=== PATIENT | female | born 1930 | race Caucasian/White ===

== ENCOUNTER → 2016-04-26 | Outpatient (CLI) | payer OTHER, MEDICARE | LOC: CIMAGING 09:53 | PROVIDERS: ATTEND Family Medicine | DX: M17.11 Unilateral primary osteoarthritis, right knee (principal); M25.552 Pain in left hip | CPT/HCPCS: 73502-PO; 73562-PO ==

== ENCOUNTER → 2016-05-10 | Outpatient (CLI) | payer OTHER, MEDICARE | LOC: FIMAGING 09:13 | PROVIDERS: ATTEND Family Medicine | DX: Z13.820 Encounter for screening for osteoporosis (principal); M85.80 Other specified disorders of bone density and structure, unspecified site; Z78.0 Asymptomatic menopausal state ==

== ENCOUNTER 2018-01-29 14:33 | Day surgery (SDC) | payer OTHER, MEDICARE ==
[2018-01-29] MEDS ORDERED: ALTEPLASE 2 MG VIAL IVP PRN (15:41)
[2018-01-29] MEDS ORDERED: PROTAMINE SULFATE 50 MG/5 ML VIAL IVP PRN (15:41)
[2018-01-29] MEDS ORDERED: fentaNYL 100 MCG/2 ML INJ IVP PRN (15:41)
[2018-01-29] MEDS ORDERED: MIDAZOLAM 2 MG/2 ML VIAL IVP PRN (15:41)
[2018-01-29] MEDS ORDERED: NALOXONE HCL 0.4 MG/ML INJ IVP PRN (15:41)
[2018-01-29] MEDS ORDERED: MEPERIDINE 25 MG/ML SYR IVP PRN (15:41)
[2018-01-29] MEDS ORDERED: HEPARIN 10,000 UNIT/10 ML MDV (1,000 UNIT/ML) IVP PRN (15:41)
[2018-01-29] MEDS ORDERED: FLUMAZENIL 0.5 MG/5 ML MDV IVP PRN (15:41)
[2018-01-29] MEDS ORDERED: GLUCAGON HCL 1 MG VIAL IVP PRN (15:41)
[2018-01-29] MEDS ORDERED: NS 1,000 ML IV SCH (15:45)
--- NOTE | 2018-01-29 16:39 | PDHPUP ---
History & Physical Update H&P update statement: This history and physical update is based on an assessment of the patient which was completed after admission or registration (within 24 hours), but prior to the surgery/procedure. H&P update: H&P reviewed & patient examined, no change in patient's condition since H&P completed
--- NOTE | 2018-01-29 16:40 | PDPROPOC ---
Sedation Plan of Care Sedation Plan of Care: vital signs stable, mental status noted, patient educated of risks, benefits, alternatives ASA Classification: ASA 2 Planned drugs: fentanyl, midazolam Mallampati Score: Class 2 Mallampati Reference Image: Patient passed 3-3-2 rule?: Yes
[2018-01-29] MEDS ORDERED: NALOXONE HCL 0.4 MG/ML INJ ONE (16:46)
[2018-01-29] MEDS ORDERED: FLUMAZENIL 0.5 MG/5 ML MDV IVP ONE (16:47)
[2018-01-29] MEDS ORDERED: fentaNYL 100 MCG/2 ML INJ ONE (16:47)
[2018-01-29] MEDS ORDERED: MIDAZOLAM 2 MG/2 ML VIAL ONE (16:47)
[2018-01-29] MEDS ORDERED: ONDANSETRON 4 MG/2 ML VIAL IVP PRN (17:40)
[2018-01-29] MEDS ORDERED: OXYCODONE/APAP 5/325 TAB PO PRN (17:40)
--- NOTE | 2018-01-29 17:40 | POSTOPPROG ---
Post Op Note Date of Operation: 01/29/18 Surgeon: Alfredo Ordonez Clerk General: none Anesthesiologist: none Anesthesia: IV Sedation Pre-op Diagnosis: acomm aneurysm Post-op Diagnosis: same Indication: same Procedure: diagnostic angiogram Findings: see dictation Inf/Abcess present in the surg proc area at time of surgery?: No EBL: Minimal
--- NOTE | 2018-01-29 17:42 | PDCONSULT ---
High Climber Note: NEUROSURGERY (ENDOVASCULAR) no new events, resting well AAOx3 strength full, sensation normal groin soft, no hematoma, distal pulses palpable s/p diagnostic angiogram for Acomm aneurysm - very tortuous arch with difficult access - flat x 3 hours - clinic will call for followup Mery
[2018-01-29] MEDS ORDERED: IOPAMIDOL (ISOVUE-300) 100 ML BTL ONE ×2 (18:08→18:09)
[2018-01-29] MEDS ORDERED: LIDOCAINE 1% 300 MG/30 ML SDV ONE (18:08)
[2018-01-29 20:34] VITALS: BP 135/91
== END 2018-01-29 20:43 | disposition home or self-care (01) ==
LOC: FIMAGING 14:33
PROVIDERS: ATTEND Neurological Surgery
PROC: B3151ZZ Fluoroscopy of Bilateral Common Carotid Arteries using Low Osmolar Contrast (ICD-10-PCS; principal; 2018-01-29 18:34)
PROC: B31F1ZZ Fluoroscopy of Left Vertebral Artery using Low Osmolar Contrast (ICD-10-PCS; principal; 2018-01-29 18:34)
DX: I67.1 Cerebral aneurysm, nonruptured (principal); H40.9 Unspecified glaucoma
CPT/HCPCS: 36223; 36226; 99152; C1769; C1887; C1894; J1644; J2250; J2310; J3010; Q9967

== ENCOUNTER → 2018-05-04 | Outpatient (CLI) | payer OTHER, MEDICARE | LOC: CIMAGING 14:10 | PROVIDERS: ATTEND Internal Medicine | DX: M17.11 Unilateral primary osteoarthritis, right knee (principal); M25.461 Effusion, right knee | CPT/HCPCS: 73564-PO; 93971-PO ==

== ENCOUNTER → 2018-05-07 | Outpatient (CLI) | payer OTHER, MEDICARE | LOC: CIMAGING 10:18 | PROVIDERS: ATTEND Internal Medicine | DX: I82.4Z1 Acute embolism and thrombosis of unspecified deep veins of right distal lower extremity (principal) | CPT/HCPCS: 93971-PO ==

== ENCOUNTER → 2018-05-14 | Outpatient (CLI) | payer OTHER, MEDICARE | LOC: CIMAGING 08:50 | PROVIDERS: ATTEND Internal Medicine | DX: I82.441 Acute embolism and thrombosis of right tibial vein (principal); M79.661 Pain in right lower leg | CPT/HCPCS: 93971-PO ==

== ENCOUNTER 2018-05-28 12:57 | Inpatient (IN) | payer OTHER, MEDICARE ==
--- NOTE | 2018-05-28 13:12 | EDPHY ---
H & P Time Seen by Provider: 05/28/18 13:01 HPI/ROS: Chief complaint. Memory issues HPI. Patient is an 87-year-old female here by EMS. She tells me she awoke this morning feeling weird at about 730. And then she is quite adamant that at about 12:30 p.m. She began searching for words. She knew what she wanted to say but could not get the words out. She has no headache. She says my vision I only see half of you. She has no chest pain or shortness of breath. Apparently she has a brain aneurysm behind her eyes her forehead that was found as part of a ophthalmology workup. She no fever shortness of breath. No abdominal pain or vomiting or diarrhea. No focal weakness or paresthesias to her arms. Vucmzwwx-wz-ivm who is here says that the speech and word-finding difficulty are different than baseline. 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 Vital signs are stable. Eyes: Pupils equal and round no pallor or injection. Covering each eye the patient says she can see with each eye however she tells me with eyes together she only sees half of me ENT, Mouth: Mucous membranes are moist. Respiratory: There are no retractions, lungs are clear to auscultation. Cardiovascular: Regular rate and rhythm. Gastrointestinal: Abdomen is soft and nontender, no masses, bowel sounds normal. Neurological: Awake and alert, sensory and motor exams grossly normal. Speech is normal but patient is having word-finding difficulty. Cranial nerves are intact. No pronator drift. Iauftl-xl-obnc is intact though somewhat shaky with the left index finger. No weakness to either leg Skin: Warm and dry, no rashes. Musculoskeletal: Neck is supple nontender. Extremities symmetrical, full range of motion. Psychiatric: Patient is oriented X 3, there is no agitation. Constitutional: Initial Vital Signs Temperature (C) 36 C 05/28/18 13:05 Heart Rate 10 L 04/18/19 13:05 Respiratory Rate 24 H 05/28/18 13:05 Blood Pressure 158/98 H 05/28/18 13:05 O2 Sat (%) 94 05/28/18 13:05 O2 Delivery Mode Room Air Allergies/Adverse Reactions: No Known Allergies Allergy (Verified 05/28/18 13:12) Home Medications: Medication Instructions Recorded Latanoprost 0.005% Eye Drop 1 drop EACHEYE DAILY 01/23/18 amLODIPine BESYLATE [Amlodipine 5 mg PO DAILY 01/23/18 Besylate] Medical Decision Making - Diagnostics EKG Interpretation: EKG interpreted by me shows normal sinus rhythm normal interval and axis. QRS is normal there is no significant ST elevation or depression. No arrhythmia. The rate is 83 Imaging Results: Imaging Impressions Head CT 05/28/18 13:26 Impression: 1. Subacute medial left occipital lobe infarct. 2. No hemorrhage or mass effect. 3. Moderate nonspecific hypodensities in the white matter of bilateral cerebral hemispheres. Differential diagnosis includes microvascular ischemic disease, post-infectious/post-inflammatory sequela, atypical demyelinating disease, or migraine-related sequela. Small white matter lacunar infarcts may also have this appearance. 4. Moderate atrophy 5. Anterior communicating artery aneurysm suspected measuring about 7 x 8 x 7 mm. If indicated, consider confirmation with CT angiogram or MR angiogram procedure If symptoms worsen, additional imaging may be necessary. Findings discussed with Andrea Wheeler M.D. at 13:46 hour, 05/28/2018. Head CTA 05/28/18 14:03 Impression: 1. 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 The right anterior cerebral artery arises off the aneurysm. 2. Cutoff of flow left posterior cerebral artery about 2 to 3 cm from the basilar origin probably representing thrombus with associated left medial occipital lobe subacute infarct. 3. Tortuous common carotid artery bilaterally with small amount of calcified plaque at the carotid bulb bilaterally. Note: All calculations were performed using NASCET criteria. Findings discussed with Andrea Wheeler M.D. at 15:14 hour, 05/28/2018. Neck CTA 05/28/18 14:03 Impression: 1. 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 The right anterior cerebral artery arises off the aneurysm. 2. Cutoff of flow left posterior cerebral artery about 2 to 3 cm from the basilar origin probably representing thrombus with associated left medial occipital lobe subacute infarct. 3. Tortuous common carotid artery bilaterally with small amount of calcified plaque at the carotid bulb bilaterally. Note: All calculations were performed using NASCET criteria. Findings discussed with Andrea Wheeler M.D. at 15:14 hour, 05/28/2018. Noncontrast head CT shows subacute infarct left occipital lobe. She continues to have anterior communicating artery aneurysm. No hemorrhage CTA head and neck shows the anterior communicating artery aneurysm. 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 Procedures: IV normal saline monitor. Stroke activation is called ED Course/Re-evaluation: I consulted and discussed the case with Dr. Goldberg for [facility] who examines the patient on the robot. He recommends CTA head and neck but no tPA at this point in time especially as the patient has an aneurysm and that the CVA appears to be subacute. Following CT a I discussed the case with Dr. Goldberg again because of the posterior cerebral artery occlusion. He recommends admission here. He does not feel the patient needs to be transferred for thrombectomy. I consulted and discussed the case with , hospsitalist, who agrees to the admission Differential Diagnosis: Patient's symptoms were felt to be initially at around noon onset. However the patient awoke feeling "weird". The CVA is seen on noncontrast head CT and is already felt to be subacute. TPA has not been recommended by Neurology as this does appear to be subacute and last time normal is not known. She also has an aneurysm of the anterior communicating artery and concern for bleeding from this site is also a concern Critical Care Time: Critical care time exclusive procedures 45 min - Data Points Laboratory Results: Laboratory Results 05/28/18 13:00 05/28/18 13:00 05/28/18 05/28/18 05/28/18 13:51 13:00 13:00 WBC RBC Hgb Hct MCV MCH MCHC RDW Plt Count MPV Neut % (Auto) Lymph % (Auto) [place] % (Auto) Eos % (Auto) Baso % (Auto) Nucleat RBC Rel Count Absolute Neuts (auto) Absolute Lymphs (auto) Absolute Monos (auto) Absolute Eos (auto) Absolute Basos (auto) Absolute Nucleated RBC Immature Gran % Immature Gran # PT 12.9 SEC SEC (12.0-15.0) INR 1.01 (0.83-1.16) Sodium 139 mEq/L mEq/L (135-145) Potassium 4.5 mEq/L mEq/L (3.5-5.2) Chloride 103 mEq/L mEq/L (97-110) Carbon Dioxide 22 mEq/l mEq/l (22-31) Anion Gap 14 mEq/L mEq/L (6-14) BUN 16 mg/dL mg/dL (7-23) Creatinine 0.8 mg/dL mg/dL (0.6-1.0) Estimated GFR > 60 Glucose 125 mg/dL H mg/dL (70-100) Calcium 10.0 mg/dL mg/dL (8.5-10.4) POC Troponin I 0.01 ng/mL ng/mL (0.00-0.08) 05/28/18 13:00 WBC 8.68 10^3/uL 10^3/uL (3.80-9.50) RBC 5.43 10^6/uL H 10^6/uL (4.18-5.33) Hgb 15.6 g/dL g/dL (12.6-16.3) Hct 48.0 % H % (38.0-47.0) MCV 88.4 fL fL (81.5-99.8) MCH 28.7 pg pg (27.9-34.1) MCHC 32.5 g/dL g/dL (32.4-36.7) RDW 14.0 % % (11.5-15.2) Plt Count 490 10^3/uL H 10^3/uL (150-400) MPV 9.7 fL fL (8.7-11.7) Neut % (Auto) 76.6 % H % (39.3-74.2) Lymph % (Auto) 15.9 % % (15.0-45.0) [place] % (Auto) 5.3 % % (4.5-13.0) Eos % (Auto) 0.5 % L % (0.6-7.6) Baso % (Auto) 1.0 % % (0.3-1.7) Nucleat RBC Rel Count 0.0 % % (0.0-0.2) Absolute Neuts (auto) 6.65 10^3/uL H 10^3/uL (1.70-6.50) Absolute Lymphs (auto) 1.38 10^3/uL 10^3/uL (1.00-3.00) Absolute Monos (auto) 0.46 10^3/uL 10^3/uL (0.30-0.80) Absolute Eos (auto) 0.04 10^3/uL 10^3/uL (0.03-0.40) Absolute Basos (auto) 0.09 10^3/uL 10^3/uL (0.02-0.10) Absolute Nucleated RBC 0.00 10^3/uL 10^3/uL (0-0.01) Immature Gran % 0.7 % % (0.0-1.1) Immature Gran # 0.06 10^3/uL 10^3/uL (0.00-0.10) PT INR Sodium Potassium Chloride Carbon Dioxide Anion Gap BUN Creatinine Estimated GFR Glucose Calcium POC Troponin I Medications Given: Discontinued Medications Aspirin (Aspirin) 324 mg PO EDNOW ONE Stop: 05/28/18 15:37 Last Admin: 05/28/18 15:57 Dose: 324 mg Point of Care Test Results: Chemistry 05/28/18 13:51 POC Troponin I 0.01 ng/mL ng/mL (0.00-0.08) Departure - Departure Disposition: [facility] Inpatient Acute Clinical Impression: Acute ischemic stroke Condition: Fair
[2018-05-28 13:58] LABS: INR 1.01 (0.83-1.16); PROTIME(PATIENT) 12.9 SEC (12.0-15.0)
[2018-05-28] MEDS ORDERED: IOPAMIDOL (ISOVUE 370) 100 ML BTL IV ONE (14:09)
[2018-05-28 15:28] LABS: PLATELET COUNT 490 10^3/uL (150-400)
[2018-05-28] MEDS ORDERED: ASPIRIN 81 MG CHEWABLE TAB PO ONE (15:36)
[2018-05-28] MEDS ORDERED: ACETAMINOPHEN 325 MG TAB PO PRN (16:41)
[2018-05-28] MEDS ORDERED: ONDANSETRON 4 MG/2 ML VIAL IVP PRN (16:41)
[2018-05-28] MEDS ORDERED: ONDANSETRON DISINTEGRATING 4 MG TAB PO PRN (16:41)
--- NOTE | 2018-05-28 17:49 | GHP ---
[f rep st] HISTORY AND PHYSICAL DATE OF ADMISSION: 05/28/2018 CHIEF COMPLAINT: Memory problems, difficulty speaking. HISTORY OF PRESENT ILLNESS: This is an 87-year-old female, who was brought to the ED for speech issu es and memory problems. History is difficult as she is having difficulty forming complete sentences, some of it is obtained from her son and [id number] who are at bedside. Apparently, she woke up not feeling quite normal today. Around noon, she had trouble putting words together, thus she richards d 9-1-1. History is notable for having hypertension, as well as an BRYAN aneurysm. Dr. King had atte mpted to coil this aneurysm in January; however, she had been unsuccessful in advancing a catheter t o the appropriate position given her anatomy. She notes that this was not associated with any confus ion, weakness, numbness in her legs or her arms. She has never had a stroke before. She is not on a ny blood thinners. In the ED, she was evaluated by Oscar Holt, who deemed her not to be a tPA candidate, and not to be a c andidate for mechanical thrombectomy due to the unclear time frame. PAST MEDICAL/SURGICAL HISTORY: 1. BRYAN aneurysm. 2. Hypertension. MEDICATIONS: Please see medication reconciliation. ALLERGIES: No known drug allergies. FAMILY HISTORY: She has strokes in her family. SOCIAL HISTORY: She lives by herself independently. She does not drink. REVIEW OF SYSTEMS: A 10-point review of systems is conducted, and is negative except per HPI. PHYSICAL EXAM: VITAL SIGNS: Blood pressure is 143/80, heart rate 89, respiration rate 18, saturatin g 96% on room air. Temperature 36.8. GENERAL: Ms. Batista is a pleasant female who is resting comf ortably in no acute distress. HEENT: Shows her to be normocephalic, atraumatic. CARDIOVASCULAR: S hows a regular rate and rhythm. There are no murmurs, rubs, or gallops. PULMONARY: Lungs clear to auscultation bilaterally. ABDOMEN: Soft, nontender, nondistended. SKIN: No rash. : Shows no F oley. NEUROLOGIC: Shows her to be alert and oriented x3. She has some notable aphasia. Cranial ne rves 2 through 12 are intact. Motor is 5/5 in the upper and lower extremities. Sensation to light t ouch is intact in the upper and lower extremities. She is able to repeat simple sentences after me. She is able to identify my name, my phone, as well as my pen. She is understanding. She is clearly following commands. She has no pronator drift. PSYCHIATRIC: Shows normal mood and affect. LABORATORY DATA: Hematocrit is 40, platelets are 490. INR is 1.0. Basic metabolic panel shows gluc ose 125. Initial troponin is negative. IMAGIN. Head and neck imaging with CT scan and CT angiogram show an BRYAN arterial aneurysm, likely thrombu s in the left LOGISTICS SOLUTION MANAGER with an associated left medial occipital lobe subacute infarct, as well as torturou s carotids. 2. ECG, which I personally viewed and interpreted, shows sinus rhythm. There is nothing acute. 3. I discussed this with Dr. Wheeler. Will admit to stroke unit here. ASSESSMENT/PLAN: 1. Subacute cerebrovascular accident with some resultant aphasia. She is not a tPA candidate given the time frame. Being visible on CT scan, strongly argues against an acute infarct. She has already been evaluated by [facility]. She does have a likely left posterior cerebral artery thrombu s, mechanical thrombectomy does not seem to be indicated given her aphasia, as well as unproven benef it of posterior cerebral artery thrombectomy. She will be admitted to stroke unit, followed on telem etry, will complete her imaging with an echocardiogram. She will be seen by appropriate therapies. Neurology has been consulted. Would consider an MRI of her brain. I have started her on aspirin for now. We will check lipids, as well as A1c. 2. Mild thrombocytosis. This seems to be somewhat chronic. It is not at a high enough level that I would think that it would cause a cerebrovascular accident. Will recheck tomorrow. /[id number]/MODL
--- NOTE | 2018-05-28 19:40 | CPEKG ---
Test Reason : OPEN Blood Pressure : / mmHG Vent. Rate : 083 BPM Atrial Rate : 084 BPM P-R Int : 200 ms QRS Dur : 082 ms QT Int : 377 ms P-R-T Axes : 055 -27 061 degrees QTc Int : 443 ms Sinus rhythm Borderline left axis deviation Low voltage, precordial leads Confirmed by Andrea Wheeler ([id number]) on 05/28/2018 7:40:37 PM Referred By: Andrea Wheeler Confirmed By:Andrea Wheeler
[2018-05-28] MEDS: LATANOPROST 0.005% 2.5 ML OPHT DROPS EACHEYE SCH (23:40)
[2018-05-29 05:23] LABS: PLATELET COUNT 386 10^3/uL (150-400)
--- NOTE | 2018-05-29 09:26 | HOSPPROG ---
Hospitalist Progress Note Assessment/Plan: #Acute left occipital/thalamic CVA -Neuro evaluated -LINQ prior to DC -ASA and statin started -PT/OT/Speech -allow for permissive HTN #Anterior comm artery aneurysm: asymptomatic. Dr. Ordonez following #Diet: regular #DVT ppx: SCDs #Disp: inpt admission for PT/OT/speech Subjective: still "can't get words out" Objective: Vital Signs Temp Pulse Resp BP Pulse Ox 36.6 C 81 17 126/86 H 98 05/29/18 07:51 05/29/18 07:51 05/29/18 07:51 05/29/18 07:51 05/29/18 07:51 Laboratory Results 05/29/18 04:37 05/29/18 04:37 05/28/18 05/29/18 05/30/18 05:59 05:59 05:59 Intake Total 300 Balance 300 PT 12.9 SEC (12.0-15.0) 05/28/18 13:00 INR 1.01 (0.83-1.16) 05/28/18 13:00 - Time Spent With Patient Time Spent with Patient: greater than 35 minutes Time Spent with Patient: Greater than 35 minutes spent on this patients care, greater than 50% of time spent counseling, educating, and coordinating care regarding the above mentioned plan. - Physical Exam Constitutional: no apparent distress Eyes: PERRL Ears, Nose, Mouth, Throat: moist mucous membranes Cardiovascular: regular rate and rhythym Respiratory: no respiratory distress Gastrointestinal: normoactive bowel sounds Genitourinary: no bladder fullness Skin: warm Musculoskeletal: full muscle strength Neurologic: CN II-XII Intact, other (expressive aphasia.), No facial droop Psychiatric: interacting appropriately ICD10 Worksheet Patient Problems: Problems Problem Status Onset Acute ischemic stroke Acute
[2018-05-29] MEDS: ENOXAPARIN 40 MG/0.4 ML SYR SC SCH (09:27)
[2018-05-29] MEDS: ASPIRIN 81 MG CHEWABLE TAB PO SCH (09:27)
--- NOTE | 2018-05-29 10:08 | NEUROPROG ---
Assessment: [id number] - Neurology Consult: - CC: Left occipital stroke, BRYAN aneurysm - HPI: 05/29/18: Pt awoke on 05/28/18 and noted problems with speech and memory. Pt has a known BRYAN aneurysm managed by Dr. Ordonez, neurosurgery, but has never had any symptoms from it. Pt presented to [facility] where head CT showed subacute left occipital stroke and stable BRYAN aneurysm and head/neck CTA confirmed the aneurysm and showed an occluded left INSULATOR HELPER to explain her stroke. Teleneurology did not recommend TPA or transfer for any acute intra-arterial therapy. Neurologic exam on 05/29/18 showed right homonymous hemianopsia. Plan will be to obtain full stroke evaluation and begin aspirin and statin for stroke prevention (LDL 96). - PMHx: BRYAN aneurysm, HTN - SHx: no alcohol FHx: strokes - ROS: Pt denied acute fever, total vision loss, active severe chest pain, respiratory failure, total body severe rash, total bowel/bladder incontinence, psychosis, active seizures, or active bleeding - O: VS reviewed General: Alert Eyes: Fundoscopic exam not able to visualize optic disks CV: Heart RRR, no murmur, no carotid bruit Lungs: Clear to auscultation bilaterally, no rhonchi or rales Neuro: - Mental: . Oriented x person/place/date . concentration appears normal . speech fluency/comprehension normal . memory appears normal . fund of knowledge appear intact - Cranial Nerves: . II: PERRL, VF shows right sided homonymous hemianopsia . III/IV/: EOMI, no nystagmus, normal smooth pursuits, no Ptosis . V: facial sensation intact to LT . VII: face symmetric to eye closure and smile . VIII: hearing intact to conversation . IX/X: uvula raises symmetrically . XI: SCM 5/5 B/L strength . XII: tongue protrudes midline w/nl strength - Motor: . Tone: normal tone in all 4 extremity . Strength: no pronator drift, strength 5/5 throughout (B/L delt, bic, tri, hand whiskey filterer, hf/he, df/pf) - Reflexes: B/L bic 2/4 - Sensory: all 4 extremity intact to light touch - Coord: no coordination issues - Gait: deferred - Labs: 05/29/18- LDL 96 - Rads: 4/18/19- Head CT wo: subacute medial L occipital stroke, no bleed, BRYAN aneurysm 05/28/18- Head/neck CTA: BRYAN aneurysm, occluded left INSULATOR HELPER, no carotid stenosis > 50% reported - Assessment: 1. 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 Stable BRYAN aneurysm: Managed by Dr. Ordonez, it does not appear to be symptomatic so does not require any immediate therapy - Plan: - Begin aspirin 81 mg qd for stroke prevention - Brain MRI - TTE - 24 hour telemetry - If no cause for stroke found with TTE/telemetry then recommend discharging with LINQ monitor for 1-6 months to assess for any paroxysmal afib - Blood pressure < 220/120 x 48 hours then < 140/90 - LDL goal < 70 (96), recommend beginning a statin - H1AC goal < 7.0 - PT/OT/Speech to determine rehab needs - F/U in neurology clinic 1-6 weeks after hospital discharge Objective: Vital Signs Temp Pulse Resp BP Pulse Ox 36.6 C 81 17 126/86 H 98 05/29/18 07:51 05/29/18 07:51 05/29/18 07:51 05/29/18 07:51 05/29/18 07:51 Laboratory Results 05/29/18 04:37 05/29/18 04:37 05/28/18 05/29/18 05/30/18 05:59 05:59 05:59 Intake Total 300 Balance 300 PT 12.9 SEC (12.0-15.0) 05/28/18 13:00 INR 1.01 (0.83-1.16) 05/28/18 13:00 Allergies/Adverse Reactions: No Known Allergies Allergy (Verified 05/28/18 13:12)
--- NOTE | 2018-05-29 12:35 | ASMTCMCOM ---
CM Note CM Note Notes: Pt is a 87 y/o female admitted for a CVA. Therapies are recommending inpatient rehab. CM spoke to Freda at [facility] inpatient rehab and they are evaluating the case. Neuro has been consulted. CM to follow. Plan: TBD Date Signed: 05/29/2018 12:35 PM Electronically Signed By:WILMAN Lebron
--- NOTE | 2018-05-29 17:22 | PDMN ---
Medical Necessity Medical necessity: Pt meets IP criteria per & SANTOS M-83; est los >2 mn for eval/tx of subacute CVA w/resultant aphasia; requiring further workup/monitoring , Neuro consult & therapies; comorbid advanced age, BRYAN aneurysm; per H&P & order 05/28/18
[2018-05-29] MEDS: ATORVASTATIN CALCIUM 20 MG TAB PO SCH (17:36)
--- NOTE | 2018-05-29 18:27 | ECHO ---
[email or web address] [address] [address] Main: [phone] Echocardiography Examination Transthoracic Name: RYANNE PRICE MR#: [id number] Study Date: 05/29/2018 Study Time: 11:19 AM Date of : 1930 Age: 87 year(s) Height: 157.5 cm (62 in.) Weight: 70.31 kg (155 lb.) BSA: 1.72 m2 Gender: Female Examination: Echo with Agitated Saline Contrast: Image Quality: Rhythm: Normal sinus rhythm Heart Rate: 78 bpm BP: / Indication: Ischemic Stroke Procedure Staff Referring Physician: Integration Solution Architect: Arnulfo Thakur RDCS Reading Physician: Albert Meza MD Requesting Provider: Indication: Ischemic Stroke Measurements Chambers AV/MV Label Value Normal Value Label Value Normal Value LVOT Vmax 0.91 m/s (0.7m/s - 1.1m/s) AV PGmax 7 mmHg LVOTd 1.9 cm (1.8cm - 2cm) AV PGmean 4 mmHg LVOT VTI 20.8 cm (18cm - 22cm) AV Vmax 1.36 m/s LVDd, 2D 3.8 cm (3.9cm - 5.3cm) BLANK (Vmax) 1.9 cm2 LVDs, 2D 2.3 cm (2.1cm - 4cm) BLANK (VTI) 2.3 cm2 IVSd, 2D 0.8 cm (0.6cm - 1.1cm) MV E Vmax 0.65 m/s LVPWd, 2D 0.9 cm MV A Vmax 1.14 m/s LVEF, 2D 72 % (54% - 74%) MV E/A 0.57 LVOT PGmean 2 mmHg MV E/E' lateral 10.8 LVOT Vmean 0.58 m/s MV E/E' septal 11.3 (0.45 - 1.25) RVDd, 2D 1.5 cm (1.9cm - 3.8cm) MV E' septal 0.06 m/s LA Volume, BP 38 ml (22ml - 52ml) MV VTI 33.5 cm LAESV index, BP 22.1 ml/m2 MVA D (continuity eq.) 1.8 cm2 RA Area 12.9 cm2 MV PGmax 7 mmHg Additional Vessels MV PGmean 2 mmHg Label Value Normal Value MV E' lateral 0.06 m/s AoRoot, MM 2.9 cm (2.2cm - 3.7cm) MV E/E' mean 10.83 MV E' mean 0.06 m/s TV/PV Label Value Normal Value Patient: RYANNE PRICE Study Date: 05/29/2018 Page 1 of 3 11:19 AM RA Pressure 5 mmHg RVSP 28 mmHg TR Pmax 23 mmHg TR Vmax 2.39 m/s PV PGmax 3 mmHg PV Vmax, Caliper 0.9 m/s (0.6m/s - 0.9m/s) Conclusions Study demonstrates positive agitated saline contrast study with findings contistent with PFO. Left Ventricle: Left ventricle is normal in size. EF range is estimated at 70 % - 75 %. Grade I Diastolic Dysfunction. Right Ventricle: Right ventricular systolic function is normal. Left Atrium: The left atrium is normal in size. IAS: An agitated saline study was performed and was positive for intracardiac shunting. Right Atrium: The right atrium is normal in size. Tricuspid Valve: Right Ventricular systolic pressure is measured at 28 mmHg. Pericardium: No pericardial effusion. Findings Left Ventricle: Left ventricle is normal in size. The EF is visually estimated to be 75 %. EF range is estimated at 70 % - 75 %. Left ventricle wall thickness is normal. There are no regional wall motion abnormalities. Grade I Diastolic Dysfunction. Right Ventricle: Normal size right ventricle. Right ventricular systolic function is normal. Left Atrium: The left atrium is normal in size. IAS: An agitated saline study was performed and was positive for intracardiac shunting. Right Atrium: The right atrium is normal in size. Mitral Valve: Mean mitral gradient of 2 mmHg. . No significant mitral regurgitation. No mitral valve stenosis. There is minimal mitral calcification. There is mild mitral thickening. There is mild mitral annular calcification. Aortic Valve: No significant aortic valve regurgitation. There is no aortic stenosis. Aortic leaflets exhibit mild calcification. The aortic valve is trileaflet. Tricuspid Valve: Mild tricuspid regurgitation. Right Ventricular systolic pressure is measured at 28 mmHg. Pulmonary artery pressure Patient: RYANNE PRICE Study Date: 05/29/2018 Page 2 of 3 11:19 AM normal. Pulmonic Valve: Pulmonic leaflets are normal in appearance and function. No pulmonic valve regurgitation is evident. Aorta: The aortic root is normal size. The aortic root size in M-mode measures 2.9 cm. Aorta Measurements AoRoot, MM is 2.9 cm. Pericardium: No pericardial effusion. Exam Details Procedure Ordered: Echo with Agitated Saline (No Signature Object) Patient: RYANNE PRICE Study Date: 05/29/2018 Page 3 of 3 11:19 AM [id number]
[2018-05-29] MEDS: LATANOPROST 0.005% 2.5 ML OPHT DROPS EACHEYE SCH (20:26)
[2018-05-30] MEDS: ASPIRIN 81 MG CHEWABLE TAB PO SCH (09:14)
[2018-05-30] MEDS: ATORVASTATIN CALCIUM 20 MG TAB PO SCH (09:14)
[2018-05-30] MEDS: ENOXAPARIN 40 MG/0.4 ML SYR SC SCH (09:15)
--- NOTE | 2018-05-30 14:02 | NEUROPROG ---
Assessment: [id number] - Neurology Consult: - CC: Left occipital stroke, BRYAN aneurysm - Narrative Summary: 05/29/18: Pt awoke on 05/28/18 and noted problems with speech and memory. Pt has a known BRYAN aneurysm managed by Dr. Ordonez, neurosurgery, but has never had any symptoms from it. Pt presented to [facility] ER where head CT showed subacute left occipital stroke and stable BRYAN aneurysm and head/neck CTA confirmed the aneurysm and showed an occluded left BACK HOE OPERATOR to explain her stroke. Teleneurology did not recommend TPA or transfer for any acute intra-arterial therapy. Neurologic exam on 05/29/18 showed right homonymous hemianopsia. Plan will be to obtain full stroke evaluation and begin aspirin and statin for stroke prevention (LDL 96). - HPI: F/U 05/30/18. Brain MRI wo showed Acute/subacute infarcts involving the left thalamus and left occipital lobe, left posterior cerebral artery territory. No new complaints. - PMHx: BRYAN aneurysm, HTN - SHx: no alcohol FHx: strokes - ROS: Pt denied acute fever, total vision loss, active severe chest pain, respiratory failure, total body severe rash, total bowel/bladder incontinence, psychosis, active seizures, or active bleeding - Labs: 05/29/18- LDL 96 - Rads: 05/28/18- Head CT wo: subacute medial L occipital stroke, no bleed, BRYAN aneurysm 05/28/18- Head/neck CTA: BRYAN aneurysm, occluded left BACK HOE OPERATOR, no carotid stenosis > 50% reported 05/29/18- Brain MRI wo: Acute/subacute infarcts involving the left thalamus and left occipital lobe, left posterior cerebral artery territory 05/29/18- TTE: PFO, EF 70-75% - Assessment: 1. 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 Stable BRYAN aneurysm: Managed by Dr. Ordonez, it does not appear to be symptomatic so does not require any immediate therapy - Plan: - Begin aspirin 81 mg qd for stroke prevention - recommend discharging with LINQ monitor for 1-6 months to assess for any paroxysmal afib - Blood pressure < 220/120 x 24 hours then < 140/90 - LDL goal < 70 (96), recommend beginning a statin - H1AC goal < 7.0 - PT/OT/Speech to determine rehab needs - F/U in neurology clinic 1-6 weeks after hospital discharge - No further inpt neurology w/u needed, neurology will sign off - 35 min spent with patient, majority of time spent counseling on stroke and treatment plan Objective: Vital Signs Temp Pulse Resp BP Pulse Ox 36.6 C 92 19 124/78 H 95 05/30/18 12:00 05/30/18 12:00 05/30/18 12:00 05/30/18 12:00 05/30/18 12:00 Laboratory Results 05/29/18 04:37 05/29/18 04:37 05/29/18 05/30/18 05/31/18 05:59 05:59 05:59 Intake Total 300 150 Output Total 200 Balance 300 -50 PT 12.9 SEC (12.0-15.0) 05/28/18 13:00 INR 1.01 (0.83-1.16) 05/28/18 13:00 Allergies/Adverse Reactions: No Known Allergies Allergy (Verified 05/28/18 13:12)
--- NOTE | 2018-05-30 15:21 | ASMTCMCOM ---
CM Note CM Note Notes: CM met with pt and family today. Due to [facility] not having capacity at this time for a new pt, CM discussed other potential programs. Family was given hand-outs on front range In Pt Reh[facility] and referrals were sent. D/C Plan: Anticipate In-Pt Rehab. Date Signed: 05/30/2018 03:20 PM Electronically Signed By:Payal Casiano
--- NOTE | 2018-05-30 18:32 | HOSPPROG ---
Hospitalist Progress Note Assessment/Plan: #Acute left occipital/thalamic CVA -Neuro evaluated -LINQ prior to DC -ASA and statin started -PT/OT/Speech -allow for permissive HTN x 24hrs, then goal <140/90 -Inpt rehab to eval, but beds may be full. CM assisting for other rehab options #Anterior comm artery aneurysm: asymptomatic. Dr. Ordonez following #Diet: regular #DVT ppx: SCDs #Disp: inpt admission for PT/OT/speech. CM ass Subjective: "talking better today" Objective: Vital Signs Temp Pulse Resp BP Pulse Ox 36.6 C 98 17 118/80 95 05/30/18 15:53 05/30/18 15:53 05/30/18 15:53 05/30/18 15:53 05/30/18 15:53 Laboratory Results 05/29/18 04:37 05/29/18 04:37 05/29/18 05/30/18 05/31/18 05:59 05:59 05:59 Intake Total 300 150 Output Total 200 Balance 300 -50 PT 12.9 SEC (12.0-15.0) 05/28/18 13:00 INR 1.01 (0.83-1.16) 05/28/18 13:00 - Time Spent With Patient Time Spent with Patient: greater than 35 minutes Time Spent with Patient: Greater than 35 minutes spent on this patients care, greater than 50% of time spent counseling, educating, and coordinating care regarding the above mentioned plan. ICD10 Worksheet Patient Problems: Problems Problem Status Onset Acute ischemic stroke Acute
[2018-05-30] MEDS: LATANOPROST 0.005% 2.5 ML OPHT DROPS EACHEYE SCH (20:34)
[2018-05-31] MEDS: ENOXAPARIN 40 MG/0.4 ML SYR SC SCH (09:24)
[2018-05-31] MEDS: ASPIRIN 81 MG CHEWABLE TAB PO SCH (09:24)
[2018-05-31] MEDS: ATORVASTATIN CALCIUM 20 MG TAB PO SCH (09:24)
--- NOTE | 2018-05-31 14:51 | CPEKG ---
Test Reason : OPEN Blood Pressure : / mmHG Vent. Rate : 090 BPM Atrial Rate : 090 BPM P-R Int : 172 ms QRS Dur : 082 ms QT Int : 349 ms P-R-T Axes : 045 -37 036 degrees QTc Int : 427 ms Sinus rhythm Anteroalteral infarct, old Confirmed by Shara Cruz ([id number]) on 05/31/2018 2:50:18 PM Referred By: Michael Schultz Confirmed By:Shara Cruz
--- NOTE | 2018-05-31 14:57 | ASMTCMCOM ---
CM Note CM Note Notes: CM met with Pt and daughter. Together they decided to accept [facility]. [facility] has been notified and can accept her on 06/01. CM to follow. Plan: [facility] Date Signed: 05/31/2018 02:56 PM Electronically Signed By:Lizbeth Domínguez
--- NOTE | 2018-05-31 16:16 | HOSPPROG ---
Hospitalist Progress Note Assessment/Plan: #Acute left occipital/thalamic CVA -Neuro evaluated -LINQ prior to DC; Cardiology to place this week -ASA and statin started -PT/OT/Speech -allow for permissive HTN x 24hrs, then goal <140/90 -Inpt rehab here full. Family agreeable to [facility] #Anterior comm artery aneurysm: asymptomatic. Dr. Ordonez following #Diet: regular #DVT ppx: SCDs #Disp: inpt admission for PT/OT/speech. Objective: Vital Signs Temp Pulse Resp BP Pulse Ox 36.9 C 97 19 128/76 H 97 05/31/18 15:39 05/31/18 15:39 05/31/18 15:39 05/31/18 15:39 05/31/18 15:39 Laboratory Results 05/29/18 04:37 05/29/18 04:37 05/30/18 05/31/18 06/01/18 05:59 05:59 05:59 Intake Total 150 250 Output Total 200 200 Balance -50 -200 250 PT 12.9 SEC (12.0-15.0) 05/28/18 13:00 INR 1.01 (0.83-1.16) 05/28/18 13:00 ICD10 Worksheet Patient Problems: Problems Problem Status Onset Acute ischemic stroke Acute
[2018-05-31] MEDS: LATANOPROST 0.005% 2.5 ML OPHT DROPS EACHEYE SCH (22:53)
[2018-06-01] MEDS ORDERED: NS 1,000 ML IV SCH (08:30)
[2018-06-01] MEDS: ENOXAPARIN 40 MG/0.4 ML SYR SC SCH (08:52)
[2018-06-01] MEDS: ATORVASTATIN CALCIUM 20 MG TAB PO SCH (08:52)
[2018-06-01] MEDS: ASPIRIN 81 MG CHEWABLE TAB PO SCH (08:52)
[2018-06-01] MEDS: predniSONE 20 MG TAB PO SCH (11:43)
[2018-06-01] MEDS ORDERED: LIDOCAINE 1% 300 MG/30 ML SDV SC ONE (13:44)
[2018-06-01] MEDS ORDERED: LIDOCAINE 1% 300 MG/30 ML SDV ONE (13:49)
--- NOTE | 2018-06-01 14:16 | PDGENHP ---
History & Physical Chief Complaint: stroke History of Present Illness: 87-year-old female admitted with occipital stroke and corresponding visual deficits on May 30. She requires long-term cardiac monitoring to evaluate for occult atrial fibrillation as an etiology for her stroke. Asked to place LINQ recorder by Neurology. Pertinent Past, Social, Family History: Reviewed Cardiorespiratory Assessment: Patient will not receive conscious sedation. Patient received local anesthesia. Cardiorespiratory status is stable.
--- NOTE | 2018-06-01 15:12 | ASMTCMCOM ---
CM Note CM Note Notes: Spoke with Dr. Stone regarding patient. Patient has developed tachycardia and will not discharge today to [facility] rehab. Spoke with Estelle in admissions ([phone]) and she states we will need to set up transport when the patient is ready. She also says they will need a Dr. to ([phone]) and a nurse to nurse ([phone]) on the day of discharge. Estelle states they will have beds through Friday. CM will follow. Date Signed: 06/01/2018 03:11 PM Electronically Signed By:Mery Rollins LCSW
--- NOTE | 2018-06-01 16:00 | HOSPPROG ---
Hospitalist Progress Note Assessment/Plan: #Acute left occipital/thalamic CVA -Neuro evaluated -appreciate Dr. Cruz's assistance with LINQ -ASA and statin started -PT/OT/Speech -BP at goal -Inpt rehab here full. Family agreeable to [facility] #Tachycardia: not taking in much fluids and pain in right ankle #Right ankle pain: has had gout there previously. Negative xray. Trial pred #Anterior comm artery aneurysm: asymptomatic. Dr. Ordonez following #Diet: regular #DVT ppx: SCDs #Disp: inpt admission for PT/OT/speech. SC to SNF tomorrow if clinically improved Subjective: right ankle pain, swelling Objective: Vital Signs Temp Pulse Resp BP Pulse Ox 36.9 C 83 17 121/67 H 95 06/01/18 15:46 06/01/18 15:46 06/01/18 15:46 06/01/18 15:46 06/01/18 15:46 Laboratory Results 05/29/18 04:37 05/29/18 04:37 05/31/18 06/01/18 06/02/18 05:59 05:59 05:59 Intake Total 1300 400 Output Total 200 Balance -200 1300 400 PT 12.9 SEC (12.0-15.0) 05/28/18 13:00 INR 1.01 (0.83-1.16) 05/28/18 13:00 - Physical Exam Constitutional: no apparent distress Eyes: PERRL Ears, Nose, Mouth, Throat: moist mucous membranes Cardiovascular: regular rate and rhythym Respiratory: no respiratory distress Gastrointestinal: normoactive bowel sounds Genitourinary: no bladder fullness Musculoskeletal: other (mild right ankle swelling. TTP over mallelous, no effusion. Mild eryrthema) Neurologic: AAOx3, CN II-XII Intact, other (cut in right field of vision) Psychiatric: interacting appropriately ICD10 Worksheet Patient Problems: Problems Problem Status Onset Acute ischemic stroke Acute
[2018-06-01] MEDS: LATANOPROST 0.005% 2.5 ML OPHT DROPS EACHEYE SCH (20:50)
--- NOTE | 2018-06-02 02:05 | CPIP ---
[f rep st] INVASIVE CARDIAC PROCEDURE DATE OF PROCEDURE: 06/01/2018 PROCEDURE: Insertion of Medtronic LINQ recorder. INDICATION: Cryptogenic stroke. Need for long-term ambulatory monitoring. COMPLICATIONS: None. DESCRIPTION OF PROCEDURE: Informed consent was obtained. The patient was prepped and draped in ster ile fashion. Using standard technique, a Medtronic LINQ recorder was implanted subcutaneously in the left intercostal space parasternal region. The incision was closed with 2 paul and sterile dress ing applied. CONCLUSION: Successful insertion of Medtronic LINQ recorder. Serial number [id number]. R-wave inte rrogation is pending. The patient will follow up in 7 days at [facility] for staple removal and w ound check, and device interrogation. /[id number]/MODL
[2018-06-02] MEDS: ENOXAPARIN 40 MG/0.4 ML SYR SC SCH (08:45)
[2018-06-02] MEDS: predniSONE 20 MG TAB PO SCH (08:47)
[2018-06-02] MEDS: ASPIRIN 81 MG CHEWABLE TAB PO SCH (08:47)
[2018-06-02] MEDS: ATORVASTATIN CALCIUM 20 MG TAB PO SCH (08:48)
--- NOTE | 2018-06-02 09:37 | PDIAF ---
- Diagnosis Diagnosis: CVA Code Status: Full Code - Medication Management Discharge Medications: electronically signed and located in the Home Medication List. - Orders Services needed: Registered Nurse, Certified Washer [employer], Physical Therapy, Occupational Therapy, Speech Language Pathologist Diet Recommendation: cardiac -low fat low salt Diet Texture: Regular Texture Diet Additional Instructions: Patient will require follow-up at [facility] in 7 days for LINQ interrogation staple removal. Her appointment is scheduled for June 10 at 11:00 a.m. With Gloria Win NP - Follow Up Care Current Providers and Referrals: Patient,NotPresent [Unknown] - As per Instructions Gloria Win NP [Certified Nurse Practioner] - (06/10 at 11 am for staple removal and LINQ interrogation)
[2018-06-02 11:30] VITALS: BP 129/69
--- NOTE | 2018-06-02 12:57 | GDS ---
[f rep st] DISCHARGE SUMMARY DISCHARGE DIAGNOSES: 1. History of anterior communicating artery aneurysm. 2. Hypertension. 3. Prior posterior tibial vein deep venous thrombosis. 4. Left occipital stroke. 5. Right ankle gout. CONSULTATIONS: 1. Neurology. 2. Cardiology for LINQ recorder placement. HISTORY OF PRESENT ILLNESS: A pleasant 87-year-old female with history of ACoA aneurysm, and hyperte nsion who presented with speech issues. She was having difficulty forming complete sentences. She a woke the day of admission not feeling like herself around noon. She had trouble putting words togeth er, and thus called 911. She was evaluated by Oscar Holt in the ER and deemed her not to be a tPA cand idate. HOSPITAL COURSE BY PROBLEM: 1. Acute left occipital/thalamic cerebrovascular accident: Neuro evaluated. Started on aspirin and statin. Blood pressure is at goal. Continue Norvasc. Dr. Cruz placed a LINQ Recorder to evaluate for atrial fibrillation. She will be discharged to [facility] rehab for continual PT, OT, and s peech therapy. 2. Tachycardia: Due to decreased p.o. intake and pain related to gout. 3. Right ankle pain: Suspect gout as she has had this there previously. She had a normal x-ray. S ymptoms improved with prednisone. Will continue for 3 more days. 4. Anterior communicating artery aneurysm, asymptomatic. She is followed by Dr. Ordonez. 5. Hypertension: Blood pressure is controlled. DISPOSITION: Patient is stable for discharge to [facility] rehab. NEW MEDICATIONS: Prednisone, aspirin, atorvastatin. FOLLOWUP: 1. Neurology. 2. PCP. PHYSICAL EXAMINATION: VITAL SIGNS: Today, temperature is 36.6, blood pressure 129/69, heart rate in the 70s, respirations 16, 97% on room air. GENERAL: She is smiling, no acute distress. HEENT: PE RRLA. Moist mucous membranes. CV: Regular rate and rhythm. CV LINQ recorder placed. Overlying dr ahmet clean, dry, intact. LUNGS: Clear. ABDOMEN: Soft, nontender, nondistended. Positive bowel sounds. : No Martinez. MUSCULOSKELETAL: 5/5 upper and lower extremity strength. NEURO: 2 through 12 intact. Right visual field cut. No dysarthria. PSYCH: Alert and oriented x 3. Time spent on discharge greater than 30 minutes, coordinating with case management for discharge to [facility]. /[id number]/MODL
== END 2018-06-02 16:02 | DRG 66 ==
LOC: EDUNIT# → F3N 16:50
PROVIDERS: ADMIT Student in an Organized Health Care Education/Training Program; ATTEND Student in an Organized Health Care Education/Training Program
PROC: 0JH60PZ Insertion of Cardiac Rhythm Related Device into Chest Subcutaneous Tissue and Fascia, Open Approach (ICD-10-PCS; principal; 2018-06-01)
DX: I63.332 Cerebral infarction due to thrombosis of left posterior cerebral artery (principal); I67.1 Cerebral aneurysm, nonruptured; R29.705 NIHSS score 5; R00.0 Tachycardia, unspecified; M25.571 Pain in right ankle and joints of right foot; I10 Essential (primary) hypertension; M10.9 Gout, unspecified; R47.01 Aphasia; Z86.718 Personal history of other venous thrombosis and embolism
CPT/HCPCS: 70551-PN; 84484-ER; 92507-GN; 92523-GN; 97110-GP; 97116-GP; 97161-GP; 97166-GO; 97530-GO; 97530-GP; 97535-GO; C1764; G0515-GO; J1650; J7512; Q9967